=== PATIENT | female | born 1985 | race Caucasian/White ===

== ENCOUNTER 2024-04-08 15:58 | Outpatient (CLI) | payer OTHER, SELFPAY ==
--- NOTE | ~2024-04-08 | MM_ITS ---
EXAMINATION: MM screening elizabeth BI w rodrigo HISTORY: Screening TECHNIQUE: Craniocaudal and mediolateral oblique 3-D tomosynthesis images were obtained and synthetic 2-D images were generated. CAD analysis was submitted and interpreted. COMPARISON: No prior mammogram is available for comparison at this institution. BREAST PARENCHYMAL COMPOSITION: Dense: The breasts are extremely dense, which lowers the sensitivity of mammography. FINDINGS: There is no evidence of suspicious mass, calcification, or architectural distortion to sugg est malignancy in either breast. There has been no suspicious interval change. IMPRESSION: 1. No mammographic evidence of malignancy. 2. Recommend routine screening mammography in one year. BI-RADS Category 1: Negative Reviewed, dictated and finalized at location B. DEVELOPER
--- OUTSIDE RECORDS SUMMARY | 2024-04-08 16:03 | XMS_ITS | Referral Summary ---
Author Organization [facility] Address [address] [place] [id number] Care Team Providers Care Manager Of Business Operations Name Role Phone No, Physician Primary Care Provider [phone] Allergies No known active allergies Medications No known medications Active Problems Problem Noted Date Diagnosed Date Major depressive disorder wi th single episode, in full remission 03/20/2019 Social History Tobacco Use Types Packs/Day Years Used Date Smoking Tobacco: Never Smokeless Tobacco: Never Personal Safety Answer Date Recorded Getting School Help Needed Not on file 02/13 Comments Unknown Sex and Gender Information Value Date Recorded Sex Assigned at Not on file Legal Sex Female 11:22 AM PANEL MONITOR Gender Identity Female 06/13/2019 11:33 AM CDT Sexual Orientation Straight 06/13/2019 11 :33 AM CDT Plan of Treatment Not on file Insurance EMPLOYEES Care Teams Manager Of Business Operations Relationship Specialty Start Date End Date No, Physician PCP - General 01/27/19
--- OUTSIDE RECORDS SUMMARY | 2024-04-08 16:03 | XMS_ITS | Clinical Summary ---
Author Organization [facility] Address [address] [place] [id number] Care Team Providers Care Teradata Solution Architect Name Role Phone No, Physician Primary Care Provider [phone] Allergies No known active allergies Medications No known medications Active Problems Problem Noted Date Diagnosed Date Major depressive disorder wi th single episode, in full remission 03/20/2019 Surgical History Surgery Date Site/Laterality Comments SECTION 2009 and 2018 TUBAL LIGATION 03/05/2017 - 03/04/2018 Social History Tobacco Use Types Packs/Day Years Used Date Smoking Tobacco: Never Smokeless Tobacco: Never Personal Safety Answer Date Recorded Getting School Help Needed Not on file 02/13 Comments Unknown Sex and Gender Information Value Date Recorded Sex Assigned at Not on file Legal Sex Female 11:22 AM PIANO TUNER Gender Identity Female 06/13/2019 11:33 AM CDT Sexual Orientation Straight 06/13/2019 11 :33 AM CDT Obstetrics History Plan of Treatment Not on file Insurance [employer] Care Teams Teradata Solution Architect Relationship Specialty Start Date End Date No, Physician PCP - General 01/27/19
== END 2024-04-08 15:59 | disposition home or self-care (01) ==
PROVIDERS: Visit Provider Obstetrics & Gynecology
DX: Z12.31 Encounter for screening mammogram for malignant neoplasm of breast (principal)
CPT/HCPCS: 77063; 77067